=== PATIENT | female | born 2000 | race Caucasian/White ===

== ENCOUNTER → 2025-03-29 10:14 | Outpatient (CLI) | payer OTHER, BC, SELFPAY ==
[2025-03-29 20:57] LABS: Add Manual Diff / Slide Review NO; Hematocrit 41.7 % (36-46); Hemoglobin 13.9 g/dL (12.0-16.0); Lymphocytes Absolute Auto 1800 /uL (1100-4500); Mean Corpuscular HGB Conc 33.4 % (30-36); Mean Corpuscular Hemoglobin 29.7 PG (26-34); Mean Corpuscular Volume 88.9 fL (80-100); Platelet Count 252 X10^3/uL (150-400)
[2025-03-29 21:05] LABS: Alanine Aminotransferase 13 IU/L (<35); Albumin 4.3 g/dL (3.5-5.0); Albumin Globulin Ratio 1.4 (1.0-2.8); Alkaline Phosphatase 54 U/L (38-126); Blood Urea Nitrogen 11 mg/dL (7-17); Calcium 9.5 mg/dL (8.4-10.2); Carbon Dioxide 29 mmol/L (22-32); Chloride 102 mmol/L (98-107); Cholesterol 167 mg/dL (140-199); Estimated Glomerular Filt Rate > 60 mL/min (>60); Globulin 3.1 g/dL (1.7-4.1); Glucose 95 mg/dL (70-99); HDL Cholesterol 48 mg/dL (40-60); HEMOLYSIS < 15 (0-50); Potassium 4.3 mmol/L (3.4-5.1); Sodium 137 mmol/L (137-145); Total Protein 7.4 g/dL (6.3-8.2); Triglycerides 69 mg/dL (35-150)
[2025-03-29 21:37] LABS: TSH w/ Reflex to FT4 0.32 uIU/mL (0.47-4.68)
[2025-03-30 01:59] LABS: Free T4, Direct Thyroxine 1.15 ng/dL (0.78-2.19)
== END ==
PROVIDERS: PCP Physician Assistant Medical; Visit Provider Physician Assistant Medical
DX: Z13.6 Encounter for screening for cardiovascular disorders (principal); Z13.1 Encounter for screening for diabetes mellitus; Z13.0 Encounter for screening for diseases of the blood and blood-forming organs and certain disorders involving the immune mechanism; Z30.9 Encounter for contraceptive management, unspecified
CPT/HCPCS: 80053; 80061; 84439; 84443; 85025

== ENCOUNTER → 2025-08-03 13:27 | Outpatient (CLI) | payer OTHER, BC, SELFPAY ==
--- NOTE | 2025-08-03 13:28 | DI.US.S_ITS ---
PROCEDURE: US THYROID
== END ==
LOC: US 13:27
PROVIDERS: PCP Physician Assistant Medical; Referring Provider Physician Assistant Medical; Visit Provider Physician Assistant Medical
DX: R79.89 Other specified abnormal findings of blood chemistry (principal)
CPT/HCPCS: 36415; 76536; 84439; 84443; 84481; 86376; 86800

== ENCOUNTER → 2025-08-03 14:10 | Outpatient (CLI) | payer OTHER, BC, SELFPAY ==
[2025-08-03 16:05] LABS: Free T3, Triiodothyronine Free 3.38 pg/mL (2.77-5.27)
[2025-08-03 16:19] LABS: TSH w/ Reflex to FT4 0.45 uIU/mL (0.47-4.68)
[2025-08-03 17:47] LABS: Free T4, Direct Thyroxine 1.03 ng/dL (0.78-2.19)
[2025-08-05 14:08] LABS: Anti Thyroglobulin Antibody <1.0 IU/mL (0.0-0.9)
== END ==
PROVIDERS: PCP Physician Assistant Medical; Referring Provider Physician Assistant Medical; Visit Provider Physician Assistant Medical
DX: R79.89 Other specified abnormal findings of blood chemistry (principal)
CPT/HCPCS: 36415; 84439; 84443; 84481; 86376; 86800

== ENCOUNTER → 2025-08-30 12:59 | Outpatient (CLI) | payer OTHER, BC, SELFPAY ==
[2025-08-30 19:27] LABS: Free T3, Triiodothyronine Free 3.41 pg/mL (2.77-5.27)
[2025-08-30 19:43] LABS: TSH w/ Reflex to FT4 0.20 uIU/mL (0.47-4.68)
[2025-08-30 20:13] LABS: Free T4, Direct Thyroxine 0.87 ng/dL (0.78-2.19)
== END ==
PROVIDERS: PCP Physician Assistant Medical; Visit Provider Physician Assistant Medical
DX: R79.89 Other specified abnormal findings of blood chemistry (principal); E06.9 Thyroiditis, unspecified
CPT/HCPCS: 84439; 84443; 84481; 85651; 86140; 86376; 86800